=== PATIENT | female | born 1980 | race Two or more races ===

== ENCOUNTER 2022-01-25 22:43 | Emergency (ER) | payer MEDICAID, OTHER ==
[~2022-01-25] VITALS: Ht 172.7 cm; Wt 113.0 kg
[2022-01-25 22:43] VITALS: BP 109/70
[2022-01-26] MEDS ORDERED: PRED20TA2 PO (00:38)
[2022-01-26] MEDS ORDERED: ACET-1158 PO (00:38)
[2022-01-26] MEDS ORDERED: AMOX-277 PO (00:38)
[2022-01-26] MEDS ORDERED: OSEL75CA5 PO (01:12)
== END 2022-01-26 01:25 | disposition home or self-care (01) ==
LOC: ER 22:45
DX: J06.9 Acute upper respiratory infection, unspecified (principal); Z20.822 Contact with and (suspected) exposure to COVID-19
CPT/HCPCS: 36415; 87426; 87804